=== PATIENT | male | born 1945 | race Two or more races ===

== ENCOUNTER 2020-05-15 05:46 | Day surgery (SDC) | payer OTHER ==
[2020-05-15] VITALS (11 sets, daily range): BP systolic 122–154; BP diastolic 66–82
[~2020-05-15] VITALS: Ht 170.2 cm; Wt 83.9 kg
[~2020-05-15 05:46] MED LIST: ASPIRIN81 MG ORAL; ATORVASTATIN CA20 MG ORAL; LISINOPRIL5 MG ORAL; METFORMIN HCL1000 M1 ORAL
[2020-05-15] MEDS ORDERED: LR 1000ml ONE (05:47)
--- NOTE | 2020-05-15 06:57 | Anethesia Preoperative Eval ---
Anesthesia Pre-op PMH/ROS General Date of Evaluation: May 15, 2020 Time of Evaluation: 06:56 Anesthesiologist: Jose Guadalupe ASA Score: ASA 3 Mallampati Score Class I : Soft palate, uvula, fauces, pillars visible Class II: Soft palate, uvula, fauces visible Class III: Soft palate, base of uvula visible Class IV: Only hard plate visible Mallampati Classification: Class II Surgeon: Júnior Diagnosis: L Shoulder Pain Surgical Procedure: L Shoulder Arthroscopy, RCR Anesthesia History: none Family History: no anesthesia problems Allergies: Coded Allergies: IBUPROFEN (Verified Adverse Reaction, Severe, constipation , 05/11/20) Medications: see eMAR Patient NPO?: Yes Past Medical History Cardiovascular: Reports: HTN, other - HL Endocrine: Reports: DM Other: obesity - BMI 30 PSxH Narrative: Umbilical Hernia Repair Anesthesia Pre-op Phys. Exam Physician Exam Last Vital Signs Date Time Temp Pulse Resp B/P (MAP) Pulse Ox O2 Delivery O2 Flow Rate FiO2 05/15/20 06:30 Room Air 05/15/20 06:30 96.5 79 18 138/74 98 Constitutional: NAD Neurologic: CN 2-12 intact Cardiovascular: RRR Respiratory: CTA Gastrointestinal: S/NT/ND Airway Exam Mallampati Score: Class II MO: full ROM: limited Teeth: missing, intact Anesthesia Pre-op A/P Labs Chemistry Test 05/15/20 06:41 POC Whole Blood Glucose 127 MG/DL (74-106) H Risk Assessment & Plan Assessment: ASA 3 Plan: GA, L Supraclavicular Block Status Change Before Surgery: No Pre-Antibiotics Dru Grams Ancef IV Given Within 1 Hr of Incision: Yes Time Given: 07:26 Jax Shi MD May 15, 2020 06:57
[2020-05-15] MEDS ORDERED: Lidocaine 1% MPF 10mg/ml 5ml ONE (06:58)
[2020-05-15] MEDS ORDERED: Sodium Chloride 10ml vial INJ ONE (06:58)
[2020-05-15] MEDS ORDERED: EPINEPHrine 1mg/1ml Amp ONE ×3 (06:59→08:46)
[2020-05-15] MEDS ORDERED: Ketamine 500mg/10ml vial ONE (06:59)
[2020-05-15] MEDS ORDERED: Bupivacaine 0.5% Inj 30 ml vial INJ ONE (06:59)
[2020-05-15] MEDS ORDERED: Ropivacaine 5mg/ml Vial 20ml INJ ONE (06:59)
[2020-05-15] MEDS ORDERED: Labetalol 5mg/ml 20ml vial IV PRN (07:00)
[2020-05-15] MEDS ORDERED: HYDROcodone/Acetamin 7.5/325 tab ORAL PRN (07:00)
[2020-05-15] MEDS ORDERED: LORazepam Inj 2mg/ml 1ml IV PRN (07:00)
[2020-05-15] MEDS ORDERED: Midazolam 2mg/2ml Inj IVP PRN (07:00)
[2020-05-15] MEDS ORDERED: Metoclopramide 10mg/2ml Inj IVP PRN (07:00)
[2020-05-15] MEDS ORDERED: oxyCODONE HCL/Acetaminophen 5/325mg ORAL PRN (07:00)
[2020-05-15] MEDS ORDERED: HYDROcodone/Acetamin 5/325 tab ORAL PRN (07:00)
[2020-05-15] MEDS ORDERED: Meperidine 25mg/1ml Inj (FOR RIGORS ONLY) IV PRN (07:00)
[2020-05-15] MEDS ORDERED: DiphenhydrAMINE 50mg/ml Inj IVP PRN (07:00)
[2020-05-15] MEDS ORDERED: fentaNYL 100 mcg/2 mL IV PRN (07:00)
[2020-05-15] MEDS ORDERED: Atropine Sulfate 0.4mg/ml inj IVP PRN (07:00)
[2020-05-15] MEDS ORDERED: LR 1000ml 1,000 ML IVLG SCH (07:00)
[2020-05-15] MEDS ORDERED: Hydromorphone 0.5mg/0.5ml inj IVP PRN (07:00)
--- NOTE | 2020-05-15 07:05 | Pre-Procedure Note/Attestation ---
Pre-Procedure Note/Attestation Complete Prior to Procedure Planned Procedure: left Procedure Narrative: left shoulder arthroscopy, subacromial decompression possible open vs arthroscopic rotator cuff repair. Indications for Procedure Pre-Operative Diagnosis: left shoulder impingement, r/o rotator cuff tear Attestation I attest that I discussed the nature of the procedure; its benefits; risks and complications; and alternatives (and the risks and benefits of such alternatives), prior to the procedure, with the patient (or the patient's legal business development representative). I attest that, if there was a reasonable possibility of needing a blood transfusion, the patient (or the patient's legal business development representative) was given the [place] [employer] standardized written summary, pursuant to the [place] Jud Blood Safety Act ([place] Health and Safety Code # 1645, as amended). I attest that I re-evaluated the patient just prior to the surgery and that there has been no change in the patient's H&P, except as documented below: Chip Callejas MD May 15, 2020 07:05
[2020-05-15] MEDS ORDERED: NS Irrig 3000ml IRRIG ONE ×7 (07:36→08:44)
[2020-05-15] MEDS ORDERED: Flumazenil 0.5mg/5ml Inj IV ONE (08:59)
--- NOTE | 2020-05-15 09:09 | Brief Operative Note ---
Immediate Post Operative Note Operative Note Pre-op Diagnosis: left shoulder impingement, r/o rotator cuff tear Procedure: lt shoulder scope, debridement, MANUEL, subacromial decompression bursectomy acromioplasty inspection of RC Post-op Diagnosis: Extensive scar tissue, Gr II GH chondromalacia, impingement, intact partial thickness RC Anesthesia: general Specimen: yes Complications: none Condition: stable Fluids: 150 Estimated Blood Loss: minimal Drains: none Implant(s) used?: No Chip Callejas MD May 15, 2020 09:09
--- NOTE | 2020-05-15 09:16 | Immediate Post-Op Evaluation ---
Immediate Post-Op Evalulation Immediate Post-Op Evalulation Procedure: L Shoulder Arthroscopy Date of Evaluation: May 15, 2020 Time of Evaluation: 09:29 IV Fluids: 600 LR Blood Products: 0 Estimated Blood Loss: 25 Urinary Output: 0 Blood Pressure Systolic: 157 Blood Pressure Diastolic: 62 Pulse Rate: 95 Respiratory Rate: 16 O2 Sat by Pulse Oximetry: 95 Temperature (Fahrenheit): 97.6 Pain Score (1-10): 1 Nausea: No Vomiting: No Complications 0 Patient Status: awake, reacts, patent, extubated, none Hydration Status: adequate Dru Grams Ancef IV Given Within 1 Hr of Incision: Yes Time Given: 07:26 Jax Shi MD May 15, 2020 09:16
--- NOTE | 2020-05-15 09:19 | 48 Hour Post Anesthesia Eval ---
Post Anesthesia Evaluation Procedure: L Shoulder Arthroscopy Date of Evaluation: May 15, 2020 Time of Evaluation: 11:43 Blood Pressure Systolic: 145 0: 78 Pulse Rate: 82 Respiratory Rate: 18 Temperature (Fahrenheit): 97.6 O2 Sat by Pulse Oximetry: 97 Airway: patent Nausea: No Vomiting: No Pain Intensity: 1 Hydration Status: adequate Cardiopulmonary Status: Stable Mental Status/LOC: patient returned to baseline Follow-up Care/Observations: 0 Post-Anesthesia Complications: 0 Follow-up care needed: ready to discharge Jax Shi MD May 15, 2020 09:19
[2020-05-15] MEDS ORDERED: Haloperidol 5mg/ml Inj IM ONE (09:45)
--- NOTE | 2020-05-15 11:00 | NUR ---
Good capillary filling to all left fingers noted. Sensation and motion to all left fingers still absent . Arm sling to left arm in place with ice pack in place.
--- NOTE | 2020-05-15 18:00 | Operative Note - Dictated ---
DATE OF OPERATION: 05/15/2020 SURGEON: Chip Callejas MD [employer] SPECIALIST: Stephan Garcia MD PREOPERATIVE DIAGNOSIS: Left shoulder posttraumatic stiffness, rule out rotator cuff tear impingement syndrome. NAME OF OPERATION: 1. Left shoulder examination and manipulation under anesthesia. 2. Glenohumeral arthroscopy with debridement. 3. Subacromial space decompression. 4. Extensive bursectomy. 5. Acromioplasty. 6. Thorough inspection of rotator cuff. OPERATIVE FINDINGS: 1. Grade 2 chondromalacia, glenohumeral joint with synovitis. 2. Partial thickness rotator cuff tear, not requiring repair. 3. Posttraumatic stiffness and adhesions. 4. Extensive bursitis. 5. Hooked acromion. ESTIMATED BLOOD LOSS: 20 mL. ANESTHESIA: General LMA. INDICATIONS FOR OPERATION: This is a 74-year-old male who is several months status post left shoulder trauma. He has failed all conservative measures including injections and therapy. The MRI showed extensive bursitis. The surgeon's read of the MRI showed a possible rotator cuff tear as well. He was brought in for manipulation under anesthesia, subacromial decompression, and inspection of the rotator cuff as well as repair as necessary. DESCRIPTION OF PROCEDURE IN DETAIL: Patient was brought into the operating room and identified by his name. The left shoulder was prepped and draped in usual sterile fashion. A time-out was performed. A manipulation under anesthesia was performed. He was noted to have mild degrees of abduction and forward flexion. With gentle and forceful manipulation, we were able to achieve 90 degrees of abduction and forward flexion with possible breakage of adhesions. Next, the arthroscope was introduced into the posterior portal atraumatically. A thorough inspection was carried out at the glenohumeral joint. Grade 2 chondromalacia was noted at the chondral surfaces. The labrum was frayed, but not detached. The biceps tendon was absent indicating a rupture at some point. It could not be visualized. There was synovitis along the rotator cuff and this was debrided. No gross rotator cuff tears were visualized from the inferior view. Next, the arthroscope was introduced into the subacromial space. A portal was established laterally. Using a shaver and ArthroCare wand, a broad bursectomy was performed. The tissue was quite thick, very vascular requiring frequent cautery and shaving. Meticulous hemostasis was performed. We could identify the acromion, which was slightly hooked. A head grinder was used to smooth the undersurface of the acromion. Additional bursal tissue was resected from the top of the rotator cuff to which it was densely adhered. However once the bursa was removed, the rotator cuff was thoroughly inspected. There were excoriations and partial thickness tears, but no full-thickness rotator cuff tear was appreciated. The shoulder was taken through full internal and external rotation as well as abduction to try to locate a rotator cuff tear, but none could be appreciated. Excessive arthroscopy fluid was removed from the subacromial space as were the instruments. The shoulder was again taken through a full range of motion without difficulty and without interference. Additional Marcaine was filled into the subacromial space and the portals. The portals were closed using 4-0 Vicryl. Patient was placed into a sling. Sterile dressing was applied. He was awakened in the operating room in satisfactory condition and transferred to the recovery room. Chip Callejas M.D. DR: ROSEANN JOB#: [id number] CC: Chip Callejas M.D.; [address] [place] [id number]; Fax#: [phone] [facility]
== END 2020-05-15 11:00 | disposition home or self-care (01) ==
LOC: SUR 05:46
DX: M75.112 Incomplete rotator cuff tear or rupture of left shoulder, not specified as traumatic (principal); M94.212 Chondromalacia, left shoulder; M25.612 Stiffness of left shoulder, not elsewhere classified; M71.9 Bursopathy, unspecified; E11.9 Type 2 diabetes mellitus without complications; I10 Essential (primary) hypertension; E66.9 Obesity, unspecified; Z88.6 Allergy status to analgesic agent; Z68.29 Body mass index [BMI] 29.0-29.9, adult
CPT/HCPCS: 23700; 29823; 82962; 94003; J0171; J0690; J1100; J1630; J2250; J2405; J2704; J2795; J3490; J7120; U0002; 94150